=== PATIENT | male | born 1985 | race Caucasian/White ===

== ENCOUNTER 2017-10-27 11:24 | Emergency (ER) | payer OTHER ==
[~2017-10-27] VITALS: Ht 177.8 cm; Wt 80.0 kg
[2017-10-27 11:36] VITALS: BP 123/64; PULSE 89; RESP 16; TEMP 98.5; O2SAT 98
[2017-10-27] MEDS ORDERED: VANCOMYCIN INJ 1,000 MG in SODIUM CHLOR 0.9% 250 ML INJ 250 ML IV STA (12:06)
[2017-10-27] MEDS ORDERED: PIPERACIL-TAZO 4.5 GM PREMIX 100 ML IV STA (12:06)
[2017-10-27 12:10] VITALS: RESP 16; O2SAT 98
--- NOTE | 2017-10-27 12:14 | PD ---
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 Surgery was performed by Dr. Xander Trujillo , who was called yesterday when 1 of the pins was removed after which the patient developed some swelling to the left thumb and what appeared to be a blister and pus appeared as well. Per patient he was advised by his surgeon to have that incised, the patient incised it himself and now comes in to have a second opinion look. Patient was started on doxycycline. XANDER TRUJILLO WITH [facility] [phone] [facility] Past Medical History Medical History: Denies Significant Hx Diminished Hearing: No Tetanus Vaccination: < 5 Years Influenza Vaccination: No Social History Alcohol Use: No Tobacco Use: Yes (1/2 pack per day) Substance Use: No Allergies-Medications (Allergen,Severity, Reaction): Coded Allergies: No Known Allergies (Unverified , 10/27/17) Reported Meds & Prescriptions Reported Meds & Active Scripts Active Reported Doxycycline Hyclate 100 Mg Cap 100 Mg PO BID Review of Systems Except as stated in HPI: all other systems reviewed are Neg Skin: Positive Lumps, Positive Other (Left thumb infection) Physical Exam Narrative GENERAL: SKIN: Warm and dry. HEAD: Atraumatic. Normocephalic. EYES: Pupils equal and round. No scleral icterus. No injection or drainage. ENT: No nasal bleeding or discharge. Mucous membranes pink and moist. NECK: Trachea midline. No JVD. CARDIOVASCULAR: Regular rate and rhythm. RESPIRATORY: No accessory muscle use. Clear to auscultation. Breath sounds equal bilaterally. GASTROINTESTINAL: Abdomen soft, non-tender, nondistended. Hepatic and splenic margins not palpable. MUSCULOSKELETAL: Extremities without clubbing, cyanosis, or edema. No obvious deformities. Patient's left thumb has diffuse edema, has erythema is nearly circumferential, despite the fact that the patient was initiated on doxycycline NEUROLOGICAL: Awake and alert. No obvious cranial nerve deficits. Motor grossly within normal limits. Five out of 5 muscle strength in the arms and legs. Normal speech. PSYCHIATRIC: Appropriate mood and affect; insight and judgment normal. Data Data Last Documented VS Vital Signs Date Time Temp Pulse Resp B/P (MAP) Pulse Ox O2 Delivery O2 Flow Rate FiO2 10/27/17 12:10 16 98 Room Air 10/27/17 11:48 89 10/27/17 11:36 98.5 123/64 (83) Orders Orders Sepsis Workup Initiated (10/27/17 ) Complete Blood Count With Diff (10/27/17 12:06) Comprehensive Metabolic Panel (10/27/17 12:06) Prothrombin Time / Inr (Pt) (10/27/17 12:06) Act Partial Throm Time (Ptt) (10/27/17 12:06) Lactic Acid Sepsis Protocol (10/27/17 12:06) Blood Culture (10/27/17 12:06) Wound Culture And Gram Stain (10/27/17 12:06) Blood Glucose (10/27/17 12:06) Ecg Monitoring (10/27/17 12:06) Iv Access Insert/Monitor (10/27/17 12:06) Oximetry (10/27/17 12:06) Piperacil-Tazo 4.5 Gm Premix (Zosyn 4.5 (10/27/17 12:06) Vancomycin Inj (Vancomycin Inj) (10/27/17 12:06) Hand, Limited (2vws) (10/27/17 ) Labs Laboratory Tests Test 10/27/17 12:25 White Blood Count 7.2 TH/MM3 Red Blood Count 5.03 MIL/MM3 Hemoglobin 15.6 GM/DL Hematocrit 45.1 % Mean Corpuscular Volume 89.7 FL Mean Corpuscular Hemoglobin 31.0 PG Mean Corpuscular Hemoglobin Concent 34.5 % Red Cell Distribution Width 12.9 % Platelet Count 219 TH/MM3 Mean Platelet Volume 8.2 FL Neutrophils (%) (Auto) 52.4 % Lymphocytes (%) (Auto) 38.4 % Monocytes (%) (Auto) 7.3 % Eosinophils (%) (Auto) 1.6 % Basophils (%) (Auto) 0.3 % Neutrophils # (Auto) 3.8 TH/MM3 Lymphocytes # (Auto) 2.8 TH/MM3 Monocytes # (Auto) 0.5 TH/MM3 Eosinophils # (Auto) 0.1 TH/MM3 Basophils # (Auto) 0.0 TH/MM3 CBC Comment DIFF FINAL Differential Comment Prothrombin Time 10.8 SEC Prothromb Time International Ratio 1.1 RATIO Activated Partial Thromboplast Time 27.4 SEC Blood Urea Nitrogen 18 MG/DL Creatinine 0.97 MG/DL Random Glucose 83 MG/DL Total Protein 7.6 GM/DL Albumin 4.1 GM/DL Calcium Level 8.9 MG/DL Alkaline Phosphatase 55 U/L Aspartate Amino Transf (AST/SGOT) 16 U/L Alanine Aminotransferase (ALT/SGPT) 21 U/L Total Bilirubin 0.6 MG/DL Sodium Level 140 MEQ/L Potassium Level 4.0 MEQ/L Chloride Level 105 MEQ/L Carbon Dioxide Level 24.7 MEQ/L Anion Gap 10 MEQ/L Estimat Glomerular Filtration Rate 89 ML/MIN Lactic Acid Level 0.5 mmol/L [facility] Medical Decision Making Medical Screen Exam Complete: Yes Emergency Medical Condition: Yes Medical Record Reviewed: Yes Differential Diagnosis Postop infection versus sepsis versus osteomyelitis Narrative Course CBC showed no leukocytosis, no anemia, no abnormal platelet count, no left shift Coagulation profile is within normal limits Electrolytes are all within normal limits, Kidney liver and pancreatic functions within normal limits Lactic acid is negative at 0.5 Hand x-ray read by radiologist as findings concerning for osteomyelitis involving the first digit proximal phalanx and possibly the base of the distal phalanx Physician Communication Physician Communication Entire case including x-ray results were discussed with covering JON PAPPAS FROM orthopedic [facility]. Discussed the case fully, recommendations were to provide IV antibiotics, agree with my choice of Zosyn and Vanco IV, stated to continue his doxycycline outpatient and to follow-up to clinic with Dr. TRUJILLO on Sunday.... 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 Diagnosis Primary Impression: Left thumb postop infection Adam Mcgill MD Oct 27, 2017 12:14
--- NOTE | 2017-10-27 12:56 | RADRPT ---
EXAM DATE: 10/27/2017 12:52 PM EDT AGE/SEX: 32 years / Male INDICATIONS: Possible infection to left thumb status post pinning 7 weeks ago. Swelling and open soa rs to left thumb. CLINICAL DATA: This is the patient's initial encounter. Patient reports that signs and symptoms have been present for 2 months and indicates a pain score of 2/10. MEDICAL/SURGICAL HISTORY: None. . Left hand, 1st digit pinning. COMPARISON: No prior [place] exams available for comparison. FINDINGS: 2 views of the left first digit demonstrates a K wire traversing a comminuted fracture involving the first digit middle phalanx. There is diffuse demineralization within the proximal and distal aspect o f the proximal phalanx with circumferential soft tissue edema. There is additional decreased minerali zation involving the base of the distal phalanx. Findings are concerning for osteomyelitis. CONCLUSION: Findings highly concerning for osteomyelitis involving the first digit proximal phalanx and possible the base of the distal phalanx. Electronically signed by: Elizabeth Alejo MD 10/27/2017 12:54 PM EDT
[2017-10-27 12:57] LABS: AUTOMATED NEUTROPHIL # 3.8 TH/MM3 (1.8-7.7); BASOPHIL % 0.3 % (0.0-2.0); EOSINOPHIL # 0.1 TH/MM3 (0-0.4); EOSINOPHIL % 1.6 % (0.0-4.0); HEMATOCRIT 45.1 % (39.0-51.0); HEMOGLOBIN 15.6 GM/DL (13.0-17.0); LYMPH % 38.4 % (9.0-44.0); LYMPHOCYTE # 2.8 TH/MM3 (1.0-4.8); MEAN CELL VOLUME 89.7 FL (80.0-100.0); MEAN CORPUSCULAR HGB CONC 34.5 % (32.0-36.0); MEAN PLATELET VOLUME 8.2 FL (7.0-11.0); MONO % 7.3 % (0.0-8.0); MONOCYTE # 0.5 TH/MM3 (0-0.9); NEUT % 52.4 % (16.0-70.0); PLATELET COUNT 219 TH/MM3 (150-450); RED BLOOD COUNT 5.03 MIL/MM3 (4.50-5.90); RED CELL DISTRIBUTION WIDTH 12.9 % (11.6-17.2); WHITE BLOOD COUNT 7.2 TH/MM3 (4.0-11.0)
[2017-10-27 13:07] LABS: INTERNATIONAL NORMALIZED RATIO 1.1 RATIO; PROTHROMBIN TIME - PATIENT 10.8 SEC (9.8-11.6)
[2017-10-27] MEDS ORDERED: DOXY100C PO (13:17)
[2017-10-27 13:30] LABS: ALBUMIN 4.1 GM/DL (3.4-5.0); ALT (GPT) 21 U/L (12-78); AST (GOT) 16 U/L (15-37); BICARBONATE 24.7 MEQ/L (21.0-32.0); BLOOD UREA NITROGEN 18 MG/DL (7-18); CALCIUM 8.9 MG/DL (8.5-10.1); CHLORIDE 105 MEQ/L (98-107); CREATININE 0.97 MG/DL (0.60-1.30); GLOMERULAR FILTRATION RATE 89 ML/MIN (>89); GLUCOSE,RANDOM 83 MG/DL (74-106); SODIUM (NA) 140 MEQ/L (136-145)
[2017-10-27 13:32] LABS: ALKALINE PHOSPHATASE 55 U/L (45-117); TOTAL BILIRUBIN ADULT 0.6 MG/DL (0.2-1.0); TOTAL PROTEIN 7.6 GM/DL (6.4-8.2)
[2017-10-27 15:05] VITALS: BP 114/66
== END 2017-10-27 15:13 | disposition home or self-care (01) ==
LOC: NEPE 11:24
DX: T81.4XXA Infection following a procedure, initial encounter (principal); F17.200 Nicotine dependence, unspecified, uncomplicated
CPT/HCPCS: 73120; 80053; 83605; 85025; 85610; 85730; 87040; 87070; 87077; 87186; 96365; 96367; 99284; J2543; J3370; J7050; 87205